=== PATIENT | female | born 1995 | race Caucasian/White ===

== ENCOUNTER → 2018-01-15 | Outpatient (CLI) | payer BC, OTHER ==
--- NOTE | 2018-01-15 16:27 | US ---
EXAMINATION TYPE: US kidneys/renal and bladder DATE OF EXAM: 01/15/2018 COMPARISON: NONE CLINICAL HISTORY: N39.0 Urinary Tract Infection. EXAM MEASUREMENTS: Right Kidney: 9.3 x 4.0 x 4.2 cm Left Kidney: 10.0 x 4.0 x 4.3 cm Post Void Residual Volume: 2.6 mL Right Kidney: No hydronephrosis or masses seen Left Kidney: No hydronephrosis or masses seen Bladder: wnl Bilateral Jets seen: Yes Normal Post Void Residual: Yes There is no evidence for hydronephrosis at this point in time. No nephrolithiasis is seen. No tonny s are identified. The urinary bladder is anechoic. Bilateral ureteral jets are seen. IMPRESSION: No distinct abnormality appreciated.
== END ==
LOC: RADUSWWP 15:56
PROVIDERS: ATTEND Urology
DX: N39.0 Urinary tract infection, site not specified (principal)
CPT/HCPCS: 76770

== ENCOUNTER → 2019-10-14 | Outpatient (CLI) | payer BC ==
--- NOTE | 2019-10-14 08:55 | US ---
EXAMINATION TYPE: US abdomen complete DATE OF EXAM: 10/14/2019 COMPARISON: NONE CLINICAL HISTORY: R10.9 abdominal pain, R10.2 pelvic pain, N63.10. Generalized pain EXAM MEASUREMENTS: Liver Length: 17.2 cm Gallbladder Wall: 0.2 cm CBD: 0.2 cm Spleen: 11.5 cm Right Kidney: 11.2 x 6.2 x 6.0 cm Left Kidney: 10.8 x 4.6 x 4.4 cm Pancreas: Appears heterogeneous in appearance. Tail obscured by overlying bowel gas. Liver: wnl Gallbladder: wnl Evidence for sonographic Conner's sign: neg CBD: wnl Spleen: wnl Right Kidney: No hydronephrosis or masses seen Left Kidney: No hydronephrosis or masses seen Upper IVC: wnl Abd Aorta: No AAA visualized The visualized liver is homogenous. The intrahepatic portion of the IVC and visualized abdominal aor ta are within normal limits. There is no evidence of cholelithiasis. Common bile duct is unremarkab le. The visualized portions of the pancreas are heterogeneous. The spleen is unremarkable. Kidneys are symmetric and free of hydronephrosis. No renal lesions are seen. IMPRESSION: No acute findings are evident.
--- NOTE | 2019-10-14 08:57 | US ---
EXAMINATION TYPE: US pelvis complete transvag DATE OF EXAM: 10/14/2019 COMPARISON: NONE CLINICAL HISTORY: R10.9 abdominal pain, R10.2 pelvic pain, N63.10. Generalized pain TECHNIQUE: Transvaginal (TV) and Transabdominal (TA) . Transabdominal sonographic images of the pel vis were acquired. Transvaginal sonographic images were medically necessary to better assess the fol lowing anatomy: Ovaries Date of LMP: 09/14/2001, EXAM MEASUREMENTS: Uterus: 8.7 x 4.4 x 3.7 cm Endometrial Stripe: 1.0 cm Right Ovary: 3.6 x 2.7 x 1.6 cm Left Ovary: 2.6 x 1.2 x 1.6 cm 1. Uterus: Anteverted wnl 2. Endometrium: wnl 3. Right Ovary: simple appearing thin-walled cyst = 2.8 x 2.4 x 2.7 cm 4. Left Ovary: wnl 5. Bilateral Adnexa: wnl 6. Posterior cul-de-sac: free fluid Cervix- wnl IMPRESSION: Tiny amount of free fluid in pelvic cul-de-sac nonspecific may be physiologic and inciden nazanin 2.8 cm thin-walled cyst right ovary otherwise unremarkable study.
== END | disposition home or self-care (01) ==
LOC: RADUSWWP 07:33
PROVIDERS: ATTEND Family Medicine
DX: R10.9 Unspecified abdominal pain (principal); R10.2 Pelvic and perineal pain
CPT/HCPCS: 76700; 76830; 76856

== ENCOUNTER → 2019-11-01 | Outpatient (CLI) | payer BC ==
[2019-11-01 14:41] LABS: ALT 22 U/L (4-34); AST 33 U/L (14-36); African American GFR (CKD) >90 (>60 ml/min/1.73 sqM); Albumin 4.6 g/dL (3.5-5.0); Alkaline Phosphatase 68 U/L (38-126); Anion Gap 10 mmol/L; Blood Urea Nitrogen 14 mg/dL (7-17); Calcium 9.8 mg/dL (8.4-10.2); Carbon Dioxide 18 mmol/L (22-30); Chloride 108 mmol/L (98-107); Glucose 93 mg/dL (74-99); Non-African American GFR(CKD) >90 (>60 ml/min/1.73 sqM); Potassium 4.8 mmol/L (3.5-5.1); Sodium 136 mmol/L (137-145); Total Bilirubin 0.6 mg/dL (0.2-1.3); Total Protein 7.3 g/dL (6.3-8.2)
--- NOTE | 2019-11-01 16:35 | CT ---
EXAMINATION TYPE: CT abdomen pelvis w con DATE OF EXAM: 11/01/2019 COMPARISON: Pelvic and abdomen ultrasound 10/14/2019 HISTORY: Epigastric and pelvis pain with nausea CT DLP: 2177.1 mGycm Automated exposure control for dose reduction was used. TECHNIQUE: Helical acquisition of images from the lung bases through the pelvis have been completed. CONTRAST: Performed with Oral Contrast and with IV Contrast, patient injected with 100 mL of Isovue 300. FINDINGS: There is an umbilical hernia containing fat. LUNG BASES: No significant abnormality is appreciated. AORTA: No significant abnormality is appreciated. LIVER/GB: No significant abnormality is appreciated. PANCREAS: No significant abnormality is seen. SPLEEN: No significant abnormality is seen. ADRENALS: No significant abnormality is seen. KIDNEYS: No significant abnormality is seen. REPRODUCTIVE ORGANS: No significant abnormality is seen BOWEL: Contrast has not coursed entirely through the bowel.. FREE AIR: No Free Air visible. ASCITES: None visible. PELVIC ADENOPATHY: None visualized. RETROPERITONEAL ADENOPATHY: No Retroperitoneal Adenopathy visible. URINARY BLADDER: No significant abnormality is seen. OSSEOUS STRUCTURES: No significant abnormality is seen. IMPRESSION: NO SIGNIFICANT ABNORMALITY IS EVIDENT
== END | disposition home or self-care (01) ==
LOC: RADCTMAIN 13:43
PROVIDERS: ATTEND Family Medicine
DX: R10.9 Unspecified abdominal pain (principal)
CPT/HCPCS: 80053; 74177; 36415; Q9967

== ENCOUNTER → 2019-12-17 | Outpatient (CLI) | payer BC ==
--- NOTE | 2019-12-17 11:43 | USB ---
Reason for exam: clinical finding. History: Family history of breast cancer in paternal aunt. Physical Findings: Nurse Summary: palpable left beast, mobile 0.5-1cm, right breast two small superficial looking areas at 6 and 7 o'clock (nurse devonte). US Breast Limited BILAT Right limited breast ultrasound including focal area of concern, retroareolar and axilla demonstrates a 0.7 x 0.8 x 0.2cm oval, irregular, hypoechoic lesion at 6 o'clock, infected hair follicle and a 1.5 x 1.9 x 0.2cm oval, irregular, hypoechoic lesion at 7 o'clock. Left limited breast ultrasound including focal area of concern, retroareolar and axilla demonstrates a 0.8 x 1.0 x 0.4cm oval, cystic lesion at 1 o'clock, a 3.3 x 3.7 x 1.5cm oval, solid, hypoechoic lesion at 2 o'clock and a 0.3 x 0.3 x 0.2cm oval, irregular, hypoechoic lesion at 6 o'clock. These results were verbally communicated with the patient and result sheet given to the patient on 12/17/19. ASSESSMENT: Suspicious, BI-RAD 4 RECOMMENDATION: Ultrasound core biopsy of the left breast. Called Dr. Chadwick's office with mammographic findings and has scheduled an appointment for the patient for 01/05/20 at 9:[address] Mercado. Biopsy scheduled for 12/31/19 at 10:30. PRELIMINARY REPORT CALLED AND FAXED TO DR. MERCADO ON 12/17/19. Ultrasound of the right breast in 6 months.
== END | disposition home or self-care (01) ==
LOC: RADUSWWP 09:36
PROVIDERS: ATTEND Family Medicine
DX: N63.10 Unspecified lump in the right breast, unspecified quadrant (principal); N63.20 Unspecified lump in the left breast, unspecified quadrant

== ENCOUNTER → 2019-12-31 | Day surgery (SDC) | payer BC ==
[2019-12-31 09:55] VITALS: RESP 16; TEMP 97.9
[2019-12-31 11:57] VITALS: BP 111/70; PULSE 73
--- NOTE | 2019-12-31 13:08 | USB ---
EXAMINATION TYPE: US biopsy breast VAD LT DATE OF EXAM: 12/31/2019 CLINICAL HISTORY: 24-year-old female left N63 Breast Lump. TECHNIQUE: Ultrasound guided core biopsy of the left breast. COMPARISON: Ultrasound 12/17/2019 FINDINGS: The procedure of ultrasound guided core biopsy was explained to the patient. Benefits, alternatives, and risks were discussed. An informed consent was then obtained. Initial scanning redemonstrates the large 3.6 cm mildly lobulated, circumscribed, solid hypoechoic mass. Some minimal internal vascularity is present. No posterior shadowing. The patient was placed in supine positioning for imaging and for the procedure. The overlying skin was prepped and draped in usual sterile fashion. Lidocaine was used as anesthetic into the skin followed by lidocaine/epinephrine mixture into the subcutaneous tissue up to area of concern in the left breast at the 2:00 palpable mass. Under ultrasound guidance, a 13-gauge vacuum-assisted mammotome Elite biopsy gun was used to obtain 4 core samples. Following this, a wing clip was left in lesion. The patient tolerated the procedure well without any immediate complication. The patient was kept in the radiology department for short stay after the procedure and then discharged home in stable condition. Postbiopsy mammogram was deferred due to the patient's age and obvious large size of the mass. 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 Full pathology results to follow. Pathology Results: Benign LEFT BREAST, ULTRASOUND GUIDED CORE BIOPSY: Fibroadenoma. Recommendation Follow up ultrasound of the left breast in 6 months. ROSELYN
== END ==
LOC: RADUSWWP 09:42
PROVIDERS: ATTEND Student in an Organized Health Care Education/Training Program
DX: D24.2 Benign neoplasm of left breast (principal)
CPT/HCPCS: 88305; 19083; A4648; J2001

== ENCOUNTER → 2024-06-25 | Outpatient (CLI) | payer BC ==
[2024-06-25 16:32] LABS: Basophils # (A) 0.05 X 10*3/uL (0.00-0.10); Basophils % (A) 0.5 %; Eosinophils # (A) 0.23 X 10*3/uL (0.04-0.35); Eosinophils % (A) 2.5 %; HCT 45.8 % (37.2-46.3); HGB 14.9 g/dL (12.0-15.0); Lymphocytes # (A) 2.66 X 10*3/uL (0.90-5.00); Lymphocytes % (A) 29.2 %; MCH 32.3 pg (27.0-32.0); MCHC 32.5 g/dL (32.0-37.0); MCV 99.1 FL (80.0-97.0); Monocytes % (A) 6.6 %; NRBC Per 100 WBC 0 X 10*3/uL (0.00-0.01); Neutrophils # (A) 5.55 X 10*3/uL (1.80-7.70); Platelet Count 327 X 10*3/uL (140-440); RBC 4.62 X 10*6/uL (4.10-5.20); RDW 12.5 % (11.5-14.5); WBC 9.11 X 10*3/uL (4.50-10.00)
[2024-06-25 17:06] LABS: ALT 27 U/L (8-44); AST 17 U/L (13-35); Albumin 4.2 g/dL (3.8-4.9); Albumin/Globulin Ratio 1.91 Ratio (1.60-3.17); Alkaline Phosphatase 90 U/L (41-126); BUN/Creat Ratio 18.75 Ratio (12.00-20.00); Calcium 9.3 mg/dL (8.7-10.3); Carbon Dioxide 22.7 mmol/L (21.6-31.8); Chloride 106 mmol/L (96-109); Chol/HDL Ratio 3.79 Ratio; Estradiol 61.5 pg/mL; Globulin 2.2 g/dL (1.6-3.3); Glucose 104 mg/dL (70-110); LDL Cholesterol,Calculated 128.8 mg/dL (0.0-131.0); Potassium 4.6 mmol/L (3.5-5.5); Rheumatoid Factor, Qnt <15 IU/mL (0-15); Sodium 140 mmol/L (135-145); Thyroid Peroxidase Antibodies 10.5 U/mL (0.0-33.0); Total Bilirubin 0.4 mg/dL (0.3-1.2); Total Protein 6.4 g/dL (6.2-8.2); VLDL Calculation 12.62 mg/dL (5.00-40.00)
[2024-06-25 17:07] LABS: T4, Free (Free Thyroxine) 1.08 ng/dL (0.80-1.80)
[2024-06-25 17:11] LABS: Erythrocyte Sedimentation Rate 18 mm/Hr (0-20)
[2024-06-25 19:09] LABS: Cancer Antigen 125 6.8 U/mL (0.0-30.1); Cancer Antigen 19-9 5.6 U/mL (0.0-34.9); Insulin Level 18.8 mIU/mL (3.0-25.0)
[2024-06-25 20:12] LABS: Anti-DNA, DS unit <1.0 IU/mL; Anti-Smith Ab Interp Negative (Negative); DNA Double-Stranded Negative (Negative)
[2024-06-25 20:52] LABS: Cyclic Citrull Pep IgG Unit <1.5 U/mL (<=3.9); Cyclic Citrullinated Pep IgG Negative
== END | disposition home or self-care (01) ==
LOC: LABWHC1 07:59
PROVIDERS: ATTEND Nurse Practitioner Family
DX: M25.50 Pain in unspecified joint (principal); L68.0 Hirsutism; R63.5 Abnormal weight gain; Z80.3 Family history of malignant neoplasm of breast; Z80.0 Family history of malignant neoplasm of digestive organs; Z86.32 Personal history of gestational diabetes
CPT/HCPCS: 36415; 80053; 80061; 82627; 82670; 83036; 83498; 83525; 84402; 84403; 84432; 84439; 84443; 85025; 85652; 86038; 86140; 86200; 86225; 86235; 86301; 86304; 86376; 86431; 86800

== ENCOUNTER → 2024-06-25 | Outpatient (CLI) | payer BC ==
--- NOTE | 2024-06-25 08:34 | USB ---
Reason for Exam: Clinical finding. Patient History: 12/31/2019, Benign Core Biopsy on the left side. Paternal aunt had breast cancer. Technique: Method: Targeted. Findings: The upper section of the breast of the left breast, the lower outer quadrant of the right breast, the axilla of both breasts and the retroareolar of both breasts were scanned. Technique utilized:US breast limited BILAT Image; Ultrasound imaging of: All 4 quadrants, the retroareolar region and axilla. No evidence for organizing fluid collection or mass. Overall Assessment: Negative, BI-RAD 1 Management: Screening Mammogram of both breasts in 1 year. A clinical breast exam by your physician is recommended on an annual basis and results should be correlated with mammographic findings. This exam should not preclude additional follow-up of suspicious palpable abnormalities. Results were given to the patient verbally at the time of exam. [facility], , 06/25/2024 7:50 AM. Electronically signed and approved by: Kris Hi DO
== END | disposition home or self-care (01) ==
LOC: RADUSWWP 07:10
PROVIDERS: ATTEND Family Medicine
DX: N63.10 Unspecified lump in the right breast, unspecified quadrant (principal); Z80.3 Family history of malignant neoplasm of breast